=== PATIENT | female | born 1995 | race African-American/Black ===

== ENCOUNTER 2017-07-14 17:00 | Emergency (ER) | payer OTHER ==
[2017-07-14] MEDS: LIDOCAINE 1% MDV 20ML VIAL IM (17:45)
== END 2017-07-14 18:27 | disposition home or self-care (01) ==
LOC: M ED 17:00
DX: N76.4 Abscess of vulva (principal)
CPT/HCPCS: 87186

== ENCOUNTER 2017-07-16 16:50 | Emergency (ER) | payer OTHER ==
[2017-07-16] MEDS ORDERED: LIDOCAINE 1% MDV 20ML VIAL As Ordered (18:28)
[2017-07-16] MEDS: LIDOCAINE 1% MDV 20ML VIAL IM (19:30)
[2017-07-16] MEDS: PERCOCET 5MG/325MG TAB PO (20:54)
[2017-07-16] MEDS: FLUCONAZOLE 50MG TABLET PO (21:03)
== END 2017-07-16 21:09 | disposition home or self-care (01) ==
LOC: M ED 16:50
DX: N76.4 Abscess of vulva (principal)
CPT/HCPCS: 10060